=== PATIENT | male | born 1955 | race Caucasian/White ===

== ENCOUNTER 2018-08-06 05:42 | Inpatient (IN) | payer MEDICARE, OTHER ==
[2018-07-30 11:31] LABS: BASOPHILS % (AUTO) 0.5 % (0-1); EOSINOPHILS # (AUTO) 0.2 X10'3 (0-0.9); LYMPHOCYTES % (AUTO) 24.6 % (21-51); MEAN CORPUSCULAR HEMOGLOBIN 31.3 PG (27.0-31.0); MEAN CORPUSCULAR HGB CONC 33.7 % (33.0-36.5); MEAN CORPUSCULAR VOLUME 92.8 FL (78-98); MEAN PLATELET VOLUME 7.9 FL (7.4-10.4); MONOCYTES # (AUTO) 0.6 X10'3 (0-0.9); MONOCYTES % (AUTO) 6.9 % (2-12); NEUTROPHILS # (AUTO) 5.3 X10'3 (1.8-7.7); PRE OP HEMATOCRIT 40.9 % (42.0-52.0); PRE OP HEMOGLOBIN 13.8 g/dL (14.0-17.9); PRE OP PLATELET COUNT 289 X10'3 (140-440); RED CELL DISTRIBUTION WIDTH 13.6 % (11.5-14.5)
[2018-07-30 11:44] LABS: ALBUMIN 3.5 G/DL (3.4-5.0); ALBUMIN/GLOBULIN RATIO 0.8 (1.1-1.5); ALKALINE PHOSPHATASE 78 IU/L (46-116); BLOOD UREA NITROGEN 24 MG/DL (7-18); BUN/CREATININE RATIO 26.4 (5.4-32.0); CALCIUM 8.8 MG/DL (8.5-10.1); CHLORIDE 100 MMOL/L (99-107); CREATININE 0.91 MG/DL (0.60-1.10); PRE OP ALT 24 U/L (30-65); PRE OP ANION GAP 7 (8-16); PRE OP AST 15 U/L (10-37); PRE OP BILIRUB, TOTAL 0.3 MG/DL (0.0-1.0); PRE OP GLUCOSE 91 MG/DL (70-104); PRE OP POTASSIUM 4.2 MMOL/L (3.4-5.1); PRE OP SODIUM 137 MMOL/L (135-145); TOTAL CARBON DIOXIDE 30.4 MMOL/L (24-32); eGFR 84 ML/MIN
[2018-07-30 12:39] LABS: CLARITY,URINE CLEAR (Clear); COLOR,URINE YELLOW (Yellow); GLUCOSE, URINE NEGATIVE (Neg); KETONES,URINE NEGATIVE (Neg); LEUKOCYTE ESTERASE ,URINE NEGATIVE (Neg); NITRITES, URINE NEGATIVE (Neg); OCCULT BLOOD,URINE NEGATIVE (Neg); PROTEIN,URINE NEGATIVE (Neg); UROBILINOGEN,URINE 0.2 E.U/dL (0.2-1.0)
[2018-07-30 12:40] LABS: UA COLLECTION TYPE CLN CATCH MIDSTREAM
[2018-08-06] VITALS (21 sets, daily range): BP systolic 90–123; BP diastolic 40–80
[~2018-08-06] VITALS: Ht 177.8 cm; Wt 86.2 kg
[~2018-08-06 05:42] MED LIST: DEXT20TA6 PO; ESCI20TA38 PO; acetaminophen 325mg tablet PO ONE; cefazolin/dext.iso 2gm/100 ML IV ONE; celeCOXIB 100mg capsule PO ONE; famotidine 20mg tablet PO ONE; gabapentin 300mg capsule PO ONE; metoclopramide 5 mg/ml inj IV ONE; oxyCODONE SR 10mg (sust. release) tab -2 tabs (20mg) PO ONE; ringers solution, lacted 1,000 ML IV SCH; tranexamic acid inj. 1,000 MG in normal saline 100ml IV soln 90 ML IV ONE; vancomycin inj 1,500 MG in normal saline 300ml IV soln IV ONE
[2018-08-06] MEDS ORDERED: LIDOcaine 1% (10mg/ml) 2ml vial ONE (05:54)
[2018-08-06] MEDS ORDERED: vancomycin 1,000mg inj ONE (06:36)
[2018-08-06] MEDS ORDERED: magnesium hydroxide 30ml (MOM) UD suspension PO PRN (07:00)
[2018-08-06] MEDS ORDERED: acetaminophen 325mg tablet PO PRN (07:00)
[2018-08-06] MEDS ORDERED: oxyCODONE/APAP 5-325mg tablet PO PRN (07:00)
[2018-08-06] MEDS ORDERED: ondansetron/PF 4mg/2ml inj IV PRN ×3 (07:00→08:25)
[2018-08-06] MEDS ORDERED: HYDROmorphone 1 mg/ml syringe IV PRN ×2 (07:00)
[2018-08-06] MEDS ORDERED: bisacodyl 10mg suppository rectal RC PRN (07:00)
[2018-08-06] MEDS ORDERED: diphenhydrAMINE 25mg capsule PO PRN ×2 (07:00)
[2018-08-06] MEDS ORDERED: ROPIVAcaine 0.5% (5mg/ml) 30ml vial ONE (07:01)
[2018-08-06] MEDS ORDERED: cloNIDine hcl/PF 100mcg/ml inj ONE (07:01)
[2018-08-06] MEDS ORDERED: tetracaine 1% (10mg/ml) pres. free inj. ONE (07:01)
[2018-08-06] MEDS ORDERED: fentaNYL/PF 50MCG/1 ML 2ML syringe ONE (07:03)
[2018-08-06] MEDS ORDERED: morphine /PF 1mg/ml 10ml inj. ONE (07:03)
[2018-08-06] MEDS ORDERED: MIDAZolam 1mg/ml 10ml vial ONE (07:03)
[2018-08-06] MEDS ORDERED: BUPIVAcaine/dex-water/PF 7.5 mg/ml 2ml ampul ONE (07:04)
[2018-08-06] MEDS ORDERED: ROPIVAcaine inj 250 MG, ketorolac tromethamine inj. 30 MG, CloNIDine/PF inj 80 MCG, epi... IU ONE ×5 (07:46)
[2018-08-06] MEDS ORDERED: ePHEDrine 50MG/ML INJ. ONE (07:52)
[2018-08-06] MEDS ORDERED: DEXTROAMPHETAMINE PO SCH (08:00)
[2018-08-06] MEDS: ascorbic acid 500mg tablet PO SCH ×2 (08:00→20:40)
[2018-08-06] MEDS: cefazolin/dext.iso 2gm/100ml 100 ML IV SCH ×2 (08:00→17:05)
[2018-08-06] MEDS ORDERED: [UNRECOGNIZED DRUG - OTHER] PO SCH (08:00)
[2018-08-06] MEDS: multivitamins, therapeutics tablet PO SCH (08:00)
[2018-08-06] MEDS: gabapentin 300mg capsule PO SCH ×3 (08:00→20:40)
[2018-08-06] MEDS ORDERED: AMPHETAMINE PO SCH (08:00)
[2018-08-06] MEDS: citalopram 20mg tablet PO SCH (08:00)
[2018-08-06] MEDS ORDERED: diphenhydrAMINE 50 mg/ml inj IV PRN (08:20)
[2018-08-06] MEDS ORDERED: ringers solution, lacted 1,000 ML IV SCH (08:22)
[2018-08-06] MEDS ORDERED: hydrALAZINE 20mg/ml inj. IV PRN (08:25)
[2018-08-06] MEDS ORDERED: fentaNYL/PF 50MCG/1 ML 2ML syringe IV PRN ×2 (08:25)
[2018-08-06] MEDS ORDERED: morphine 4 MG/ML inj SYRINge IV PRN ×2 (08:25)
[2018-08-06] MEDS ORDERED: labetalol 20mg/4ml (5mg/ml) syringe IV PRN (08:25)
[2018-08-06] MEDS: aspirin 325mg tablet PO SCH (08:30)
[2018-08-06] MEDS: potassium cl 20mEq in 1/2 NS 1,000 ML IV SCH ×2 (17:07→17:08)
[2018-08-06] MEDS: AMPHETAMINE PO SCH (20:00)
[2018-08-06] MEDS: DEXTROAMPHETAMINE PO SCH (20:00)
[2018-08-06] MEDS: oxyCODONE/APAP 10/325mg tablet PO PRN (20:39)
[2018-08-06] MEDS: sennosides 8.6mg tablet PO SCH (20:40)
[2018-08-07] VITALS (7 sets, daily range): BP systolic 89–133; BP diastolic 42–59
[2018-08-07] MEDS: cefazolin/dext.iso 2gm/100ml 100 ML IV SCH ×3 (00:11→17:02)
[2018-08-07] MEDS: potassium cl 20mEq in 1/2 NS 1,000 ML IV SCH ×4 (00:12→23:00)
[2018-08-07] MEDS: oxyCODONE/APAP 10/325mg tablet PO PRN ×5 (05:06→23:45)
[2018-08-07 05:44] LABS: BASOPHILS % (AUTO) 0.4 % (0-1); EOSINOPHILS # (AUTO) 0.1 X10'3 (0-0.9); EOSINOPHILS % (AUTO) 1.2 % (0-6); HEMATOCRIT 28.5 % (42.0-52.0); HEMOGLOBIN 9.6 g/dl (14.0-17.9); LYMPHOCYTES # (AUTO) 1.5 X10'3 (1.1-4.8); LYMPHOCYTES % (AUTO) 15.5 % (21-51); MEAN CORPUSCULAR HEMOGLOBIN 31.6 PG (27.0-31.0); MEAN CORPUSCULAR HGB CONC 33.9 % (33.0-36.5); MEAN CORPUSCULAR VOLUME 93.2 FL (78-98); MEAN PLATELET VOLUME 8.2 FL (7.4-10.4); MONOCYTES # (AUTO) 0.8 X10'3 (0-0.9); MONOCYTES % (AUTO) 8.5 % (2-12); NEUTROPHILS # (AUTO) 7.2 X10'3 (1.8-7.7); NEUTROPHILS % (AUTO) 74.4 % (42-75); PLATELET COUNT 173 X10'3 (140-440); RED BLOOD COUNT 3.06 X10'6 (4.70-6.10); RED CELL DISTRIBUTION WIDTH 13.3 % (11.5-14.5); WHITE BLOOD COUNT 9.7 X10'3 (4.5-11.0)
[2018-08-07 06:15] LABS: ANION GAP 6 (8-16); CHLORIDE 106 MMOL/L (99-107); POTASSIUM 4.2 MMOL/L (3.5-5.1); SODIUM 139 MMOL/L (135-145); TOTAL CARBON DIOXIDE 26.7 MMOL/L (24-32)
[2018-08-07] MEDS: DEXTROAMPHETAMINE PO SCH (08:00)
[2018-08-07] MEDS: AMPHETAMINE PO SCH (08:00)
[2018-08-07] MEDS: citalopram 20mg tablet PO SCH (08:07)
[2018-08-07] MEDS: ascorbic acid 500mg tablet PO SCH ×2 (08:08→20:23)
[2018-08-07] MEDS: multivitamins, therapeutics tablet PO SCH (08:08)
[2018-08-07] MEDS: aspirin 325mg tablet PO SCH (08:08)
[2018-08-07] MEDS: gabapentin 300mg capsule PO SCH ×3 (08:08→20:23)
[2018-08-07] MEDS ORDERED: ASPI-1 PO (08:40)
[2018-08-07] MEDS ORDERED: AMPHETAMINE PO SCH (17:58)
[2018-08-07] MEDS ORDERED: DEXTROAMPHETAMINE PO SCH (17:58)
[2018-08-07] MEDS: celeCOXIB 100mg capsule PO SCH (20:22)
[2018-08-07] MEDS: sennosides 8.6mg tablet PO SCH (20:23)
[2018-08-07] MEDS: lactobacillus rhamnosus 10,000 MMU CELLS/CAPSULE PO SCH (20:23)
[2018-08-08] VITALS: BP 86/48
[2018-08-08] MEDS: cefazolin/dext.iso 2gm/100ml 100 ML IV SCH
[2018-08-08 00:30] VITALS: BP 94/43
[2018-08-08 05:44] LABS: BASOPHILS % (AUTO) 0.4 % (0-1); EOSINOPHILS # (AUTO) 0.2 X10'3 (0-0.9); EOSINOPHILS % (AUTO) 2.9 % (0-6); HEMATOCRIT 26.5 % (42.0-52.0); LYMPHOCYTES # (AUTO) 1.5 X10'3 (1.1-4.8); LYMPHOCYTES % (AUTO) 20.4 % (21-51); MEAN CORPUSCULAR HEMOGLOBIN 31.6 PG (27.0-31.0); MEAN PLATELET VOLUME 7.9 FL (7.4-10.4); MONOCYTES # (AUTO) 0.8 X10'3 (0-0.9); MONOCYTES % (AUTO) 10.5 % (2-12); NEUTROPHILS # (AUTO) 4.7 X10'3 (1.8-7.7); NEUTROPHILS % (AUTO) 65.8 % (42-75); PLATELET COUNT 167 X10'3 (140-440); RED BLOOD COUNT 2.85 X10'6 (4.70-6.10); RED CELL DISTRIBUTION WIDTH 13.3 % (11.5-14.5); WHITE BLOOD COUNT 7.2 X10'3 (4.5-11.0)
[2018-08-08] MEDS: ascorbic acid 500mg tablet PO SCH (07:25)
[2018-08-08] MEDS: lactobacillus rhamnosus 10,000 MMU CELLS/CAPSULE PO SCH (07:26)
[2018-08-08] MEDS: multivitamins, therapeutics tablet PO SCH (07:26)
[2018-08-08] MEDS: oxyCODONE/APAP 10/325mg tablet PO PRN (07:27)
[2018-08-08] MEDS: citalopram 20mg tablet PO SCH (07:27)
[2018-08-08] MEDS: celeCOXIB 100mg capsule PO SCH (07:27)
[2018-08-08] MEDS: gabapentin 300mg capsule PO SCH (07:27)
[2018-08-08] MEDS ORDERED: AMPHETAMINE PO SCH (08:00)
[2018-08-08] MEDS ORDERED: DEXTROAMPHETAMINE PO SCH (08:00)
[2018-08-08] MEDS: aspirin 325mg tablet PO SCH (08:32)
[2018-08-08 11:00] VITALS: BP 96/55
== END 2018-08-08 11:30 | disposition home or self-care (01) | DRG 470 ==
LOC: PAS IN 05:42 → EDSTATUS 07:30 → ORTHO 4S 11:00
PROVIDERS: ADMIT Orthopaedic Surgery; ATTEND Orthopaedic Surgery
PROC: 3E0T3BZ Introduction of Anesthetic Agent into Peripheral Nerves and Plexi, Percutaneous Approach (ICD-10-PCS; 2018-08-06)
PROC: 0SRC0J9 Replacement of Right Knee Joint with Synthetic Substitute, Cemented, Open Approach (ICD-10-PCS; principal; 2018-08-06 07:10)
DX: M17.11 Unilateral primary osteoarthritis, right knee (principal); D62 Acute posthemorrhagic anemia; F32.9 Major depressive disorder, single episode, unspecified; G89.29 Other chronic pain; M54.9 Dorsalgia, unspecified; Z79.899 Other long term (current) drug therapy; Z79.82 Long term (current) use of aspirin
CPT/HCPCS: 36415; 71046; 73560; 80051; 80053; 81003; 85025; 85610; 85730; 86885; 86900; 86901; 87070; 93005; 97110; 97116; 97161; 97530; A6455; A7000; C1713; C1758; C1776; G0378; J0171; J0690; J0735; J1885; J2250; J2274; J2765; J2795; J3010; J3370; J3490; J7030; J7120